=== PATIENT | male | born 2000 | race Caucasian/White ===

== ENCOUNTER 2024-03-03 13:20 | Outpatient (CLI) | payer OTHER ==
--- NOTE | 2024-03-04 07:55 | MRI Report ---
PROCEDURE: Hand RT WO INDICATIONS: WRIST INJURY TECHNIQUE: Noncontrast coronal T1 spin echo and T2 fast spin echo with fat saturation, axial proton density fast spin echo and T2 fast spin echo with fat saturation, sagittal T1 spin echo and STIR through the hand and fingers. COMPARISON: Right wrist radiographs 04/13/2022. FINDINGS: Image quality: Excellent. Bones: The bones are normally aligned, without marrow contusions or fractures. No intra-osseous les ions. Soft tissues: Focal fluid signal is seen dorsal to the 3rd extensor tendon at the level of the metaca rpophalangeal joint measuring 8 x 3 x 12 mm. The adjacent 3rd extensor tendon appears to be intact. N o disruption of the sagittal bands or tendon subluxation. The remaining visualized extensor and flexo r tendons are intact. No signs of ryan injury. 5 mm ganglion cyst is seen in the wrist dorsal to th e capitate. Visualized muscles demonstrate normal bulk and internal signal. No intramuscular masses identified. IMPRESSION: 1.Focal fluid signal along the dorsal aspect of the 3rd extensor tendon at the level of the metacarpo phalangeal joint narrowed represent a small ganglion cyst versus possibly focal tenosynovitis. No sig ns of extensor or flexor tendon tearing. 2.Ganglion cyst measuring 5 mm dorsal to the capitate. Reviewed by: Aristeo Caraballo MD on 03/04/2024 7:54 AM PDT Approved by: Aristeo Caraballo MD on 03/04/2024 7:54 AM PDT Station ID: [id number]
== END 2024-03-03 13:21 | disposition home or self-care (01) ==
LOC: DI 13:20
DX: M67.431 Ganglion, right wrist (principal)

== ENCOUNTER 2024-04-05 11:02 | Emergency (ER) | payer OTHER ==
--- NOTE | 2024-04-05 11:25 | ED Physician Documentation ---
PD HPI UPPER EXT INJURY - Stated complaint Stated Complaint: RT HAND INJ - Chief complaint Chief Complaint: Ext Problem - History obtained from History obtained from: Patient - History of Present Illness Location: Right, Hand (near middle finger MCP dorsally.) Timing - onset: How many hours ago (couple), Today Timing - details: Abrupt onset, Still present Worsened by: Moving Associated symptoms: Weakness (has felt weak for extension since initial injury 5 weeks ago.). No: Numbness Similar symptoms before: Diagnosis (he had punched a wal and had pain at knuckle without fracture on xray. Bruised and swollen and painful for movement so it was splinted 4 weeks. Has been out of that for couple weeks, with some pain on ROM. TOday had his finger "crackle" in area on simple ROM after awakening. Swelling and bruising.) Recently seen: Clinic (had injury to mcp 5 weeks ago with pain and swelling and weak movement of finger after punching wall withut fractures. Treated for tendon/ligament injury with cast up through fingers to forearm for 4 weeks. Has been out of it for a week.) PD PAST MEDICAL HISTORY - Past Medical History Past Medical History: Yes Cardiovascular: None Respiratory: None Neuro: None Endocrine/Autoimmune: None GI: GERD : None HEENT: None Psych: None Musculoskeletal: None Derm: None - Past Surgical History Past Surgical History: Yes Ortho: Other - Present Medications Home Medications: Ambulatory Orders Medication Instructions Recorded Confirmed Ofloxacin 0.3% Ophth Drops 2 drops OPTH Q4H 10 Days #5 ml 05/08/23 [Ocuflox 0.3% Ophth Drops] - Allergies Allergies/Adverse Reactions: Allergies Allergy/AdvReac Type Severity Reaction Status Date / Time No Known Drug Allergies Allergy Verified 04/05/24 11:17 - Social History Does the pt smoke?: No Smoking Status: Never smoker - Immunizations Immunizations are current?: Yes PD ED PE NORMAL - Vitals Vital signs reviewed: Yes - General General: Alert and oriented X 3, Well developed/nourished - Derm Derm: Normal color, Warm and dry - Neuro Neuro: No sensory deficit, Other (tender at middle finger MCP and distal MC. with brusing and swelling. weaker/painful for extension against resistance. Xray wtihout fractures. ) Results - Vitals Vitals: Vital Signs - 24 hr 04/05/24 04/05/24 11:11 12:10 Temperature 37.1 C 36.5 C Heart Rate 87 86 Respiratory 16 18 Rate Blood Pressure 133/91 H 134/95 H O2 Saturation 95 98 Oxygen O2 Source Room air - Rads (name of study) hand xray Relevant Findings:: Prelim report reviewed (no bony lesions. ), See rad report PD Medical Decision Making - ED course Complexity details: reviewed results, considered differential (did not have new injury per se, just a side movement of his fingers and had a crack feeling with new swelling and faint bruising developing. He states bruised with initial injury. I would assume tear/partial tear of tendon/muscle initially and perhaps final rupture now, such as lumbrical muscle.), d/w patient Departure - Departure Disposition: 01 Home, Self Care Clinical Impression: Muscle strain, hand Condition: Stable Record reviewed to determine appropriate education?: Yes Instructions: ED Sprain Hand Follow-Up: [facility] [place] [Provider Group] [facility] [Provider Group] Comments: Your x-ray appears normal. On exam I would consider whether you have some injury of the ligament at the knuckle or more likely the intrinsic muscle of the hand (lumbricals). It sounds like you had some injury to it previously and it may have not healed well and partly tore again. Use the finger splint and deneen tape for now. Follow-up tomorrow as planned. Could also follow-up with orthopedics. Tylenol ibuprofen as needed for pains. Ice elevate and rest the hand often today to reduce swelling and bruising. Forms: PCP List, Activity restrictions Discharge Date/Time: 04/05/24 12:10
--- NOTE | 2024-04-05 11:56 | XRAY Report ---
PROCEDURE: Hand 3+V RT INDICATIONS: Trauma TECHNIQUE: 3 views of the hand(s) acquired. COMPARISON: None. FINDINGS: Bones: No fractures or dislocations. No suspicious bony lesions. Soft tissues: No suspicious soft tissue calcifications or masses. IMPRESSION: No acute bony abnormality. Reviewed by: Aravind Pathak MD on 04/05/2024 11:55 AM PDT Approved by: Aravind Pathak MD on 04/05/2024 11:55 AM PDT Station ID: [id number]
[2024-04-05 12:15] VITALS: BP 134/95; O2SAT 98
== END 2024-04-05 12:10 | disposition home or self-care (01) ==
LOC: ED 11:02
DX: S66.811A Strain of other specified muscles, fascia and tendons at wrist and hand level, right hand, initial encounter (principal); W22.8XXA Striking against or struck by other objects, initial encounter
CPT/HCPCS: 99283